=== PATIENT | male | born 1990 | race Caucasian/White ===

== ENCOUNTER 2021-01-01 08:50 | Outpatient (CLI) | payer BC, SELFPAY ==
[2021-01-01 09:53] LABS: SARS-CoV-2 Ag Negative (Negative)
== END 2021-01-01 08:51 | disposition home or self-care (01) ==
LOC: CHSLAB 08:55
PROVIDERS: PCP Physician Assistant; Visit Provider Physician Assistant
DX: R05 Cough (principal); Z20.822 Contact with and (suspected) exposure to COVID-19
CPT/HCPCS: 87426; C9803

== ENCOUNTER 2021-09-18 17:44 | Outpatient (CLI) | payer BC, SELFPAY ==
[2021-09-18 19:59] LABS: SARS-CoV-2 RNA PCR Negative (Negative)
== END 2021-09-18 17:45 | disposition home or self-care (01) ==
LOC: CHSLAB 17:46
PROVIDERS: PCP Physician Assistant; Visit Provider Physician Assistant
DX: B34.9 Viral infection, unspecified (principal); Z20.822 Contact with and (suspected) exposure to COVID-19
CPT/HCPCS: C9803; U0003; U0005

== ENCOUNTER 2021-10-01 20:23 | Emergency (ER) | payer BC, SELFPAY ==
--- NOTE | ~2021-10-01 | CT_ITS ---
EXAMINATION: CT brain wo con DATE: 10/02/2021 00:17 INDICATION: Headache. TECHNIQUE: Computed tomography (CT) of the head was performed without intravenous contrast. The mA wa s adjusted according to patient size. Iterative reconstruction technique was employed. The dose-lengt h product was 681.00 mGy-cm. COMPARISON: None FINDINGS: There is a small focus of low attenuation in the left parietal white matter, which may be n ormal as an isolated finding. There is no intracranial hemorrhage, acute infarction, or abnormal intr acranial mass lesion. The ventricles are normal in size. Right maxillary sinus is small and completel y opacified. There is near complete opacification of the right ethmoid and right frontal sinuses. Rig ht-sided enophthalmos is noted. This constellation of findings is consistent with silent sinus syndro me. The mastoid air cells are normal. IMPRESSION: 1. Normal aging brain. 2. Silent sinus syndrome involving right maxillary sinus. Reviewed, dictated and finalized at location B. [facility]ER
[2021-10-01 20:48] VITALS: BP 146/88; PULSE 93; RESP 18; TEMP 37.4; O2SAT 100
--- NOTE | 2021-10-01 23:37 | PC.NURSE ---
To treatment room with steady gait and normal posture; speech clear.
--- NOTE | 2021-10-01 23:51 | ED.GENADULT ---
HPI - General Adult General Chief complaint: Headache Stated complaint: migraine Time Seen by Provider: 10/01/21 23:38 History of Present Illness HPI narrative: Patient is a 31-year-old gentleman who presents the emergency department chief complaint of migraine headache. Patient reports he has prior history of migraines reports it is frontal mostly photophobia patient reports his symptoms are not improved by anything. Patient reports he took a Imitrex without relief. Related Data Allergies Allergy/AdvReac Type Severity Reaction Status Date / Time No Known Allergies Allergy Verified 10/02/21 00:35 Review of Systems Review of Systems: A 10 system review of systems was completed on the patient and is negative except for what is stated in the HPI. Nursing and ancillary documentation was reviewed. PMFSH Comments Past medical history for migraines Exam Narrative: GENERAL: Well-appearing, well-nourished, and in no acute distress. HEAD: Normocephalic, atraumatic. EYES: PERRLA and EOMI. ENT: Nares clear, no rhinorrhea or epistaxis. Mucous membranes moist. NECK: Supple. CHEST: Clear to auscultation. No respiratory distress. HEART: Regular rate and rhythm. No murmur heard. Normal peripheral pulses. ABDOMEN: Soft, nontender, nondistended, normal active bowel sounds. EXTREMITIES: Normal range of motion. No edema. SKIN: Warm, dry, no rash. NEURO: No focal deficits. Alert and oriented x3. PSYCH: Normal mood and affect. Course Course Emergency Course: CT head shows no evidence of acute abnormality Vital Signs Vital signs: Vital Signs Temperature 37.4 C 10/01/21 20:48 Pulse Rate 93 10/01/21 20:48 Respiratory Rate 18 10/01/21 20:48 Blood Pressure 146/88 H 10/01/21 20:48 Pulse Oximetry 100 10/01/21 20:48 Temperature 37.4 C 10/01/21 20:48 Pulse Rate 93 10/01/21 20:48 Respiratory Rate 18 10/01/21 20:48 Blood Pressure 146/88 H 10/01/21 20:48 Pulse Oximetry 100 10/01/21 20:48 Medical Decision Making Vital Signs Vital Signs: Vital Signs Temperature 37.4 C 10/01/21 20:48 Pulse Rate 93 10/01/21 20:48 Respiratory Rate 18 10/01/21 20:48 Blood Pressure 146/88 H 10/01/21 20:48 Pulse Oximetry 100 10/01/21 20:48 Temperature 37.4 C 10/01/21 20:48 Pulse Rate 93 10/01/21 20:48 Respiratory Rate 18 10/01/21 20:48 Blood Pressure 146/88 H 10/01/21 20:48 Pulse Oximetry 100 10/01/21 20:48 Discharge Plan Discharge Clinical Impression: Headache, migraine Qualifiers: Migraine type: unspecified Status migrainosus presence: without status migrainosus Intractability: not intractable Qualified Code(s): G43.909 - Migraine, unspecified, not intractable, without status migrainosus Patient Disposition: Home, Self-Care Condition: Stable Instructions: Antibiotic Form, Migraine Headache (ED) Follow-up/Referrals: Johnnie,JIM Bailey [Primary Care Provider] - Time of Disposition: 01:53
[2021-10-02] MEDS: diphenhydrAMINE HCl INJ 50 MG/ML VIAL IV PUSH (00:36)
[2021-10-02] MEDS: PROCHLORPERAZINE EDISYLATE 10 MG/2 ML VIAL IV PUSH (00:36)
[2021-10-02] MEDS: SODIUM CHLORIDE 0.9% IV 1,000 ML 999 ML IV CONT (00:36)
[2021-10-02] MEDS: KETOROLAC 30 MG/ML VIAL (*BKC) IV PUSH (00:36)
[2021-10-02] MEDS: SODIUM CHLORIDE 0.9% IV 100 ML 500 ML (00:37)
[2021-10-02 02:23] VITALS: BP 108/73; PULSE 68; RESP 16; O2SAT 98
== END 2021-10-02 02:25 | disposition home or self-care (01) ==
PROVIDERS: Emergency Provider Emergency Medicine; PCP Physician Assistant
DX: G43.909 Migraine, unspecified, not intractable, without status migrainosus (principal)
CPT/HCPCS: 70450; 96361; 96374; 96375; 99284; J0780; J1200; J1885; J7030

== ENCOUNTER 2021-10-07 14:41 | Outpatient (CLI) | payer BC, SELFPAY ==
[2021-10-08 21:11] LABS: SARS-CoV-2 RNA PCR Negative
== END 2021-10-07 14:42 | disposition home or self-care (01) ==
LOC: CHSLAB 14:45
PROVIDERS: PCP Physician Assistant; Visit Provider Physician Assistant
DX: B34.9 Viral infection, unspecified (principal); Z20.822 Contact with and (suspected) exposure to COVID-19
CPT/HCPCS: C9803; U0003; U0005

== ENCOUNTER 2022-09-06 14:04 | Emergency (ER) | payer BC, SELFPAY ==
[2022-09-06 14:10] VITALS: BP 139/74; PULSE 85; RESP 16; TEMP 37.1; O2SAT 98
--- NOTE | 2022-09-06 14:50 | ED.GENADULT ---
HPI - General Adult General Chief complaint: Upper Respiratory Infection Stated complaint: sore throat,cough,ear ache Source: patient Mode of arrival: ambulatory Limitations: no limitations History of Present Illness HPI narrative: Patient presents for evaluation of left-sided ear pain. Symptom onset this morning upon waking today. He had some right-sided ear pain yesterday. That persists but it is mild in severity compared to the left side. He rates his left ear pain as 8/10 in severity. No drainage from the ears. He has a sore throat and occasional cough. His had similar symptoms last week. No fever, chills, nausea, vomiting, diarrhea or SOB. He does not smoke. No additional complaints or concerns. Related Data Home Medications Medication Instructions Recorded Confirmed loratadine 10 mg tablet (Claritin) 10 mg PO DAILY 09/06/22 09/06/22 omeprazole 20 mg capsule,delayed 20 mg PO DAILY 09/06/22 09/06/22 release Allergies Allergy/AdvReac Type Severity Reaction Status Date / Time No Known Allergies Allergy Verified 09/06/22 14:32 Review of Systems Review of Systems: CONSTITUTIONAL: Denies fever, chills, or sweats. EYES: Denies visual changes, redness, or discharge. ENT: Reports bilateral ear pain, left greater than the right. Reports sore throat. CARDIOVASCULAR: Denies chest pain, palpitations, or edema. RESPIRATORY: Reports cough. Denies dyspnea. GASTROINTESTINAL: Denies abdominal pain, nausea, vomiting, or diarrhea. GENITOURINARY: Denies dysuria or hematuria. SKIN: Denies rash or itching. MUSCULOSKELETAL: Denies back pain, joint pain, or myalgia. NEUROLOGIC: Denies headache, numbness, dizziness, or weakness. PSYCHIATRIC: Denies anxiety or depression. [facility] Past Medical History Medical History No pertinent past medical history Surgical History Surgical History No pertinent past surgical history Family History Family History Mother Family history non-contributory Social History Social History Smoking status: Never smoker Alcohol intake: never Substance use: never Gender identity (if verbalized by the patient): Male Sexual Orientation (if Verbalized by the Patient): Straight or Heterosexual Spiritual care concerns: No Exam Narrative: GENERAL: Well-appearing, well-nourished, and in no acute distress. HEAD: Normocephalic, atraumatic. EYES: PERRLA and EOMI. ENT: Nares clear, no rhinorrhea or epistaxis. Mucous membranes moist. Oropharynx without tonsillar hypertrophy exudate or other lesions. Bilateral tympanic membrane erythema. There is purulent material behind the left TM with bulging NECK: Supple. No adenopathy or masses. No carotid bruits or JVD CHEST: Clear to auscultation. No respiratory distress. No wheezes rales or rhonchi HEART: Regular rate and rhythm. No murmur heard. Normal peripheral pulses. ABDOMEN: Soft, nontender, nondistended, normal active bowel sounds. EXTREMITIES: Normal range of motion. No edema. SKIN: Warm, dry, no rash. NEURO: No focal deficits. Alert and oriented x3. PSYCH: Normal mood and affect. Course Course Emergency Course: This is a 32-year-old male who presents for evaluation of left-sided ear pain. He has evidence of otitis media on exam. Will treat with Augmentin. Increase hydration. OTC meds for symptom management. Follow up outpatient for further evaluation and treatment and go to the ER for worsening symptoms. Pt in agreement with plan of care. Level of Care: Express Care Visit Vital Signs Vital signs: Vital Signs Temperature 37.1 C 09/06/22 14:10 Pulse Rate 85 09/06/22 14:10 Respiratory Rate 16 09/06/22 14:10 Blood Pressure 139/74 09/06/22 14:10 Pulse Oximetry 98 09/06/22
== END 2022-09-06 14:56 | disposition home or self-care (01) ==
PROVIDERS: Emergency Provider Nurse Practitioner; PCP Physician Assistant
DX: H66.92 Otitis media, unspecified, left ear (principal)
CPT/HCPCS: 99213; G0463

== ENCOUNTER 2022-11-08 10:04 | Emergency (ER) | payer BC, SELFPAY ==
[2022-11-08 10:22] VITALS: BP 147/80; PULSE 104; RESP 16; TEMP 36.9; O2SAT 97
--- NOTE | 2022-11-08 10:44 | ED.GENADULT ---
HPI - General Adult General Chief complaint: Upper Respiratory Infection Stated complaint: sore throat,nausea,diarrhea Source: patient Mode of arrival: ambulatory Limitations: no limitations History of Present Illness HPI narrative: Patient presents for evaluation of sick symptoms. Symptoms include nausea, vomiting, sore throat, fever. His was here yesterday and tested positive for strep. His symptoms started approximately 2 days ago. Denies any cough, shortness of breath. He does not smoke. His son is being evaluated here for similar symptoms. He took tylenol for his symptoms. No additional complaints or concerns. Related Data Home Medications Medication Instructions Recorded Confirmed loratadine 10 mg tablet (Claritin) 10 mg PO DAILY 09/06/22 11/08/22 omeprazole 20 mg capsule,delayed 20 mg PO DAILY 09/06/22 11/08/22 release Allergies Allergy/AdvReac Type Severity Reaction Status Date / Time No Known Allergies Allergy Verified 11/08/22 10:34 Review of Systems Review of Systems: CONSTITUTIONAL: Reports fever. Denies chills. EYES: Denies visual changes, redness, or discharge. ENT: Reports sore throat. Denies otalgia. CARDIOVASCULAR: Denies chest pain, palpitations, or edema. RESPIRATORY: Denies cough or dyspnea. GASTROINTESTINAL: Reports nausea vomiting. Denies diarrhea. GENITOURINARY: Denies dysuria or hematuria. SKIN: Denies rash or itching. MUSCULOSKELETAL: Denies back pain, joint pain, or myalgia. NEUROLOGIC: Denies headache, numbness, dizziness, or weakness. PSYCHIATRIC: Denies anxiety or depression. PMFSH Surgical History Surgical History History of cholecystectomy History of repair of ACL Family History Family History Mother Family history non-contributory Social History Social History Smoking status: Never smoker Alcohol intake: never Substance use: never Living arrangements: with family Gender identity (if verbalized by the patient): Male Sexual Orientation (if Verbalized by the Patient): Straight or Heterosexual Spiritual care concerns: No Exam Narrative: GENERAL: Well-appearing, well-nourished, and in no acute distress. HEAD: Normocephalic, atraumatic. EYES: PERRLA and EOMI. ENT: Nares clear, no rhinorrhea or epistaxis. Mucous membranes moist. Bilateral tonsillar enlargement and erythema with white exudate. Uvula is midline.. Bilateral TMs pearly ravi nonbulging NECK: Supple. No adenopathy or masses. No carotid bruits or JVD CHEST: Clear to auscultation. No respiratory distress. No wheezes rales or rhonchi HEART: Regular rate and rhythm. No murmur heard. Normal peripheral pulses. ABDOMEN: Soft, nontender, nondistended, normal active bowel sounds. EXTREMITIES: Normal range of motion. No edema. SKIN: Warm, dry, no rash. NEURO: No focal deficits. Alert and oriented x3. PSYCH: Normal mood and affect. Course Course Emergency Course: This is a 32-year-old male who presented for evaluation of sick symptoms after recent strep exposure. Rapid strep positive. Will treat with amoxicillin. Follow up with primary provider. Go to the ER for worsening symptoms. [id number] agents for symptom management. Patient in agreement with plan of care. Level of Care: Express Care Visit Vital Signs Vital signs: Vital Signs Temperature 36.9 C 11/08/22 10:22 Pulse Rate 104 H 11/08/22 10:22 Respiratory Rate 16 11/08/22 10:22 Blood Pressure 147/80 H 11/08/22 10:22 Pulse Oximetry 97 11/08/22 10:22 Oxygen Delivery Room Air 11/08/22 10:22 Temperature 36.9 C 11/08/22 10:22 Pulse Rate 104 H 11/08/22 10:22 Respiratory Rate 16 11/08/22 10:22 Blood Pressure 147/80 H 11/08/22 10:22 Pulse Oximetry 97 11/08/22 10:22 Oxygen Delivery Room Air 11/08/22 10:22
== END 2022-11-08 10:45 | disposition home or self-care (01) ==
PROVIDERS: Emergency Provider Nurse Practitioner; PCP Physician Assistant
DX: J02.0 Streptococcal pharyngitis (principal)
CPT/HCPCS: 87880; 99213; G0463

== ENCOUNTER 2022-11-16 11:07 | Emergency (ER) | payer BC, SELFPAY ==
--- NOTE | 2022-11-16 11:10 | ED.EYEPROB ---
HPI - Eye Problem General Chief complaint: Upper Respiratory Infection Stated complaint: emely eye redness Time Seen by Provider: 11/16/22 11:10 Source: patient and RN notes reviewed History of Present Illness HPI Narrative: Patient is a 32-year-old male who presents to urgent care with complaints of bilateral eye redness. Patient was here on the 08 of November and diagnosed with strep. Patient was placed on amoxicillin and Claritin at that time. Patient states he has been taking medication but still is having fevers. States bilateral eye redness started on and he has been using an old eyedrops prescription of his sons at home. Patient also took ibuprofen for the fever. No other acute complaints. No acute distress noted. Patient aware of the plan of care. Some parts of this dictation were generated by voice recognition software and may contain typographical and/or grammatical inaccuracies. Related Data Home Medications Medication Instructions Recorded Confirmed loratadine 10 mg tablet (Claritin) 10 mg PO DAILY 09/06/22 11/08/22 omeprazole 20 mg capsule,delayed 20 mg PO DAILY 09/06/22 11/08/22 release Allergies Allergy/AdvReac Type Severity Reaction Status Date / Time No Known Allergies Allergy Verified 11/08/22 10:34 Review of Systems Review of Systems: CONSTITUTIONAL: Reports fever EYES: Reports bilateral eye redness, itchiness and drainage ENT: Denies rhinorrhea, congestion, otalgia, sore throat CARDIOVASCULAR: Denies chest pain, palpitations, or edema. RESPIRATORY: Denies cough or dyspnea. GASTROINTESTINAL: Denies abdominal pain, nausea, vomiting, or diarrhea. GENITOURINARY: Denies dysuria or hematuria. SKIN: Denies rash or itching. MUSCULOSKELETAL: Denies back pain, joint pain, or myalgia. NEUROLOGIC: Denies headache, numbness, or weakness. All other systems reviewed are negative, except as documented in HPI. [facility] Surgical History Surgical History History of cholecystectomy History of repair of ACL Family History Family History Mother Family history non-contributory Social History Social History Smoking status: Never smoker Alcohol intake: never Substance use: never Living arrangements: with family Gender identity (if verbalized by the patient): Male Sexual Orientation (if Verbalized by the Patient): Straight or Heterosexual Spiritual care concerns: No Comments At the time of my signature, I reviewed and agree with the nursing past medical, surgical, social, and family history. There is no relevant family history pertinent to the patient complaint. Exam Narrative: GENERAL: This is a well-nourished, well-developed patient, in no apparent distress. HEAD: normocephalic, atraumatic. EYES: PERRL. Mild bilateral injected conjunctiva with erythemics bilateral sclera and clear drainage. Vision is grossly intact. EARS: External ears normal, auditory canals clear and without drainage, TMs normal without perforation. Hearing grossly intact. NOSE: External nose normal with no obvious nasal discharge, nares without redness, no rhinorrhea. THROAT: Mucous membranes moist, mild erythema to posterior pharynx with mild postnasal drainage NECK: Neck supple, non-tender without lymphadenopathy SKIN: warm, intact with no suspicious lesions or rash, good texture and turgor. NEURO: awake, alert, and oriented to person, place and time. There were no obvious focal neurologic abnormalities. EXTREMITIES: No clubbing, cyanosis, or edema. Course Course Level of Care: Express Care Visit Vital Signs Vital signs: Vital Signs Temperature 98.9 F 11/16/22 11:14 Pulse Rate 102 H 11/16/22 11:14 Respiratory Rate 14 11/16/22 11:14 Blood Pressure 140/90 11/16/22 11:14 Pulse Oximetry 98 11/16/22 11:14 Ox
[2022-11-16 11:14] VITALS: BP 140/90; PULSE 102; RESP 14; TEMP 37.2; O2SAT 98
== END 2022-11-16 11:42 | disposition home or self-care (01) ==
PROVIDERS: Emergency Provider Nurse Practitioner Family; PCP Physician Assistant
DX: H10.33 Unspecified acute conjunctivitis, bilateral (principal)
CPT/HCPCS: 87081; 87880; 99213; G0463

== ENCOUNTER 2023-11-25 16:32 | Emergency (ER) | payer BC, SELFPAY ==
[2023-11-25 16:38] VITALS: BP 150/73; PULSE 71; RESP 16; TEMP 37.1; O2SAT 99
--- NOTE | 2023-11-25 16:56 | ED.GENADULT ---
HPI - General Adult General Chief complaint: Upper Respiratory Infection Stated complaint: Cough/Congestion Source: patient, RN notes reviewed and old records reviewed Mode of arrival: ambulatory Limitations: no limitations History of Present Illness HPI narrative: 33-year-old male patient presents to Express Care with complaint, congestion, headache, right ear pain that started 3 days ago. Patient states cough is productive states phlegm production is yellowish. Patient taking [id number] cough sores with no relief. Patient denies chest pain, shortness of breath, dizziness, weakness, fever Related Data Home Medications Medication Instructions Recorded Confirmed Claritin 11/25/23 omeprazole 11/25/23 Allergies Allergy/AdvReac Type Severity Reaction Status Date / Time No Known Allergies Allergy Verified 11/25/23 16:34 Review of Systems Constitutional: Constitutional: Reports no additional constitutional complaints, Denies body ache(s), Denies chills, Denies fatigue, Denies fever(s) and Reports headache(s) Eyes: Eyes: Reports no additional eye complaints and Denies blurry vision ENT: Reports system reviewed and no additional complaints, except as documented, Denies vertigo, Denies dizziness, Denies ear discharge, Reports otalgia, Denies facial pain, Denies headache(s), Reports nasal congestion, Reports nasal discharge, Denies sinus pain, Reports sinus pressure and Denies sore throat Cardiovascular: Cardiovascular: Reports no additional cardiovascular complaints, Denies chest pain, Denies chest pain at rest, Denies rapid heart rate and Denies dyspnea Respiratory: Respiratory: Reports no additional respiratory complaints, Reports chest congestion, Reports cough, Denies pain on inspiration, Denies pain with cough and Denies dyspnea Gastrointestinal: Gastrointestinal: Denies abdominal pain, Denies diarrhea, Denies nausea and Denies vomiting Integumentary/Breasts: Skin/Breast: Denies rash Neurologic: Reports system reviewed and no additional complaints, except as documented, Denies vertigo, Denies dizziness and Denies headache(s) Endocrine: Endocrine: Denies fatigue [facility] Surgical History Surgical History History of cholecystectomy History of repair of ACL Family History Family History Mother Family history non-contributory Social History Social History Smoking status: Never smoker Alcohol intake: never Substance use: never Living arrangements: with family Gender identity (if verbalized by the patient): Male Sexual Orientation (if Verbalized by the Patient): Straight or Heterosexual Spiritual care concerns: No Comments At the time of my signature, I reviewed and agree with the nursing past medical, surgical, social, and family history. There is no relevant family history pertinent to the patient complaint. Exam Const: General: cooperative, healthy appearing, no acute distress and well nourished Nutritional Appearance: well nourished Orientation/consciousness: patient oriented x3 Limitations: no limitations HENMT: Head: normal to inspection and normocephalic Ears: external ears normal, EAC's normal, mastoids normal and TM abnormal wth effusion serous bilateral Face/Nose/Sinus: Normal nasal mucous membranes and turbinates present and normal facial exam Face and sinus: normal facial exam Mouth: Yes Normal oral and palatal mucosa present, Yes oropharynx normal and Yes moist mucous membranes Throat: tonsils normal, uvula midline, normal tonsils, no peritonsillar masses, posterior oropharynx abnormal erythema, postnasal drainage and no uvular edema Eyes: General: appearance normal, both eyes and all related structures Sclera: sclerae normal Pupils: Equal, round and reactive pupils present Resp: Effort & Inspection: nor
== END 2023-11-25 17:21 | disposition home or self-care (01) ==
PROVIDERS: Emergency Provider Registered Nurse; PCP Physician Assistant
DX: B34.9 Viral infection, unspecified (principal); Z20.822 Contact with and (suspected) exposure to COVID-19
CPT/HCPCS: 87426; 87804; 99213; G0463

== ENCOUNTER 2024-06-30 17:25 | Emergency (ER) | payer BC, SELFPAY ==
[2024-06-30 17:37] VITALS: BP 144/78; PULSE 71; RESP 18; TEMP 37.2; O2SAT 98
--- NOTE | 2024-06-30 17:44 | ED.EXTPRO ---
HPI - Extremity Problem General Chief complaint: Extremity Problem,Nontraumatic Stated complaint: Left Elbow Swelling/Irritation Time Seen by Provider: 06/30/24 17:40 Source: patient and RN notes reviewed Mode of arrival: ambulatory Limitations: no limitations History of Present Illness HPI Narrative: 33-year-old male presents with concern for left elbow redness, pain, warmth that started today. He denies any injury or trauma. 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 MD Complaint: extremity swelling Related Data Home Medications Medication Instructions Recorded Confirmed loratadine 10 mg tablet (Claritin) 10 mg PO DAILY 06/30/24 06/30/24 omeprazole 20 mg capsule,delayed 20 mg PO DAILY 06/30/24 06/30/24 release Allergies Allergy/AdvReac Type Severity Reaction Status Date / Time No Known Allergies Allergy Verified 06/30/24 17:41 Review of Systems Review of Systems: CONSTITUTIONAL: Denies malaise, chills, sweats, or fever. CARDIOVASCULAR: Denies chest pain, palpitations, or edema. RESPIRATORY: Denies cough or dyspnea. SKIN: Denies rash or itching, bruising MUSCULOSKELETAL: Reports left elbow redness, tenderness, swelling NEUROLOGIC: Denies numbness, weakness All systems reviewed & are unremarkable except as noted in HPI and below PMFSH Surgical History Surgical History History of cholecystectomy History of repair of ACL Family History Family History Mother Family history non-contributory Social History Social History Smoking status: Never smoker Alcohol intake: never Substance use: never Living arrangements: with family Gender identity (if verbalized by the patient): Male Sexual Orientation (if Verbalized by the Patient): Straight or Heterosexual Spiritual care concerns: No Comments At time of signature, agree with nursing past medical, surgical, social and family history. There is no relevant family history pertinent to the presenting complaint Exam Narrative: GENERAL: Well-appearing, well-nourished, and in no acute distress. HEAD: Normocephalic, atraumatic. EYES: PERRLA, conjunctivae clear NECK: Supple. CHEST: Speaks in full sentences. No respiratory distress. HEART: Regular rate and rhythm. Normal and equal peripheral pulses. EXTREMITIES: Left elbow has grossly normal strength and sensation, grossly normal range of motion. Lateral Elbow edema, mild erythema and warmth. Normal sensation with sensitivity to light touch and pain. Elbow tenderness. No open wounds, no skin tenting, no devitalized tissue or atrophy, no trophic changes, no obvious deformity, alignment normal, nearby joints and structures intact. Distal pulses palpable and equal bilaterally, skin warm, dry, pink. Capillary refill less than 3 seconds. SKIN: Warm, dry, no rash. NEURO: Alert and oriented x3. PSYCH: Normal mood and affect Course Course Emergency Course: Patient is aware of diagnosis, understands and agrees to treatment plan. Anticipatory guidance given. Patient agrees to follow-up as directed and is aware of reasons to seek care at the emergency department. Portions of this record may have been created with voice recognition software Level of Care: Express Care Visit Vital Signs Vital signs: Reviewed. MDM - Extremity (Nontraumatic) MDM Narrative Medical decision making narrative: I evaluated this patient in the express care. History is obtained from patient who is an independent historian and physical exam was performed.? Available medical records were reviewed. ? Exam findings show no acute concerns or changes; patient is non-toxic appearing and is in no distress. ? Differential diagnosis and treatment plan were discussed with the patient. Patient agrees with discussion and aft
== END 2024-06-30 17:51 | disposition home or self-care (01) ==
PROVIDERS: Emergency Provider Nurse Practitioner; PCP Physician Assistant
DX: M70.32 Other bursitis of elbow, left elbow (principal)
CPT/HCPCS: 99213; G0463

== ENCOUNTER 2024-07-18 15:29 | Emergency (ER) | payer BC, SELFPAY ==
[2024-07-18 15:36] VITALS: BP 148/86; PULSE 74; RESP 20; TEMP 37.1; O2SAT 100
--- NOTE | 2024-07-18 16:06 | ED_ITS ---
HPI - URI/Sore Throat General Chief Complaint: Upper Respiratory Infection Stated Complaint: Cough, shortness of breath Time Seen by Provider: 07/18/24 16:06 Source: patient, RN notes reviewed and old records reviewed Mode of arrival: ambulatory Limitations: no limitations History of Present Illness HPI Narrative: 34-year-old male to Express Care with complaint of productive cough with green sputum, shortness of breath with exertion, sore throat, headache, fever, right ear pain for 6 days. Patient was seen on June 30 for bursitis and given 10 days of amoxicillin as well as prednisone. patient denies breathing, difficulty swallowing, chest pain, allergies, pertinent medical history. Patient able to tolerate fluids by mouth. Patient resting comfortably in exam room in no acute distress. Respirations even and nonlabored. Patient able to speak in complete sentences without difficulty. Related Data Home Medications Medication Instructions Recorded Confirmed loratadine 10 mg tablet (Claritin) 10 mg PO DAILY 06/30/24 07/18/24 omeprazole 20 mg capsule,delayed 20 mg PO DAILY 06/30/24 07/18/24 release Allergies Allergy/AdvReac Type Severity Reaction Status Date / Time No Known Allergies Allergy Verified 07/18/24 15:57 Review of Systems Review of Systems: All systems reviewed & are unremarkable except as noted in HPI and below Constitutional: Constitutional: Reports as per HPI, Reports fever(s) and Reports headache(s) Eyes: Eyes: Reports no additional eye complaints ENT: Reports as per HPI and Reports otalgia ( Right) Cardiovascular: Cardiovascular: Reports no additional cardiovascular complaints, Denies chest pain and Denies dyspnea Respiratory: Respiratory: Reports no additional respiratory complaints, Reports change in phlegm color ( green), Reports cough, Denies dyspnea and Reports dyspnea on exertion Musculoskeletal: Musculoskeletal: Reports no additional musculoskeletal complaints Neurologic: Reports system reviewed and no additional complaints, except as documented Psychiatric: Psychiatric: Reports no additional psychiatric complaints [facility] Surgical History Surgical History History of cholecystectomy History of repair of ACL Family History Family History Mother Family history non-contributory Social History Social History Smoking status: Never smoker Alcohol intake: never Substance use: never Living arrangements: with family Gender identity (if verbalized by the patient): Male Sexual Orientation (if Verbalized by the Patient): Straight or Heterosexual Spiritual care concerns: No Comments At the time of my signature, I reviewed and agree with the nursing past medical, surgical, social, and family history. There is no relevant family history pertinent to the patient complaint. Exam Const: General: cooperative, healthy appearing, comfortable, no acute distress, alert and well nourished Nutritional Appearance: well nourished Orientation/consciousness: patient oriented x3 Limitations: no limitations HENMT: Head: normal to inspection Ears: external ears normal Face/Nose/Sinus: Normal external nose present, Normal nares present, normal facial exam, No erythema and No edema Face and sinus: normal facial exam, no erythema and no edema Mouth: Yes Normal oral and palatal mucosa present Eyes: General: appearance normal, both eyes and all related structures Neck: Neck: normal visual inspection, full ROM and no meningeal signs Lymphatic: no lymphadenopathy noted and no lymphedema noted Chest: Chest palpation & inspection: normal inspection of the chest Resp: Effort & Inspection: normal respiratory effort and able to speak in complete sentences Auscultation: clear to auscultation bilaterally Cardio: Jugular venous distension: no JVD Rate: regular rate Rhythm: regular rhythm Back/Spine/Pelvis: Cervical Spine: cervical ROM normal Skin: General skin exam: normal color, no rashes or lesions noted and turgor normal Neuro: General: patient oriented x3, gait normal, moves all extremities and no meningeal signs Speech: normal speech Gait exam (Neuro): Normal gait present Extrem: General: normal to inspection, full ROM and capillary refill normal Psych: Appearance: grossly normal and well kempt Course Course Emergency Course: Some parts of this dictation were generated by voice recognition software and may contain typographical and/or grammatical inaccuracies. Level of Care: Express Care Visit Vital Signs Vital signs: Vital Signs Temperature 37.1 C 07/18/24 15:36 Pulse Rate 74 07/18/24 15:36 Respiratory Rate 20 07/18/24 15:36 Blood Pressure 148/86 H 07/18/24 15:36 Pulse Oximetry 100 07/18/24 15:36 Oxygen Delivery Room Air 07/18/24 15:36 Temperature 37.1 C 07/18/24 15:36 Pulse Rate 74 07/18/24 15:36 Respiratory Rate 20 07/18/24 15:36 Blood Pressure 148/86 H 07/18/24 15:36 Pulse Oximetry 100 07/18/24 15:36 Oxygen Delivery Room Air 07/18/24 15:36 reviewed MDM - URI/Sore Throat MDM Narrative Medical decision making narrative: 34-year-old male to Express Care with complaint of productive cough with green sputum, shortness of breath with exertion, sore throat, headache, fever, right ear pain for 6 days. Patient was seen on June 30 for bursitis and given 10 days of amoxicillin as well as prednisone. patient denies breathing, difficulty swallowing, chest pain, allergies, pertinent medical history. Patient able to tolerate fluids by mouth. Patient resting comfortably in exam room in no acute distress. Respirations even and nonlabored. Patient able to speak in complete sentences without difficulty. On exam, right TM erythematous, bulging with fluid, loss of landmarks. Right EAC erythema, edema tenderness. Exam otherwise unremarkable. Findings consistent with right otitis media. Patient is sitting comfortably in exam room nontoxic in appearance. Patient appropriate for outpatient treatment and follow-up. Discharge instructions reviewed with patient, as well as provided in writing per nursing staff. The instructions also include specific and strict return/GO TO THE ER as well as f/u information. All questions have been answered, and the patient deny any further questions w ith discharge and discharge plan. Some parts of this dictation were generated by voice recognition software and may contain typographical and/or grammatical inaccuracies. Differential Diagnosis Differential diagnosis: Likely upper respiratory infection, croup, otitis media, sinusitis, viral infection, bronchitis, influenza and pharyngitis Discharge Plan Discharge Clinical Impression: Acute right otitis media Patient Disposition: Home, Self-Care Condition: Stable Instructions: Ear Infection (AC) Additional Instructions: -Alternate Tylenol and Motrin per package directions for fever or pain. -Antihistamine medication such as Benadryl at night and Zyrtec/Claritin/Catia during the day can help improve symptoms. -Use Flonase twice a day for 5 days then daily to help reduce the inflammation and dry up your sinuses. -You can also use Sudafed or Mucinex. Be sure to drink plenty of water with these medications at least 8 ounces with every dose and it is important to drink 8 to 10 glasses of water per day. Water is a natural decongestant -Eat and drink things that are easy to swallow, like tea or soup, or popsicles. -Oral rinses such as: Salt water gargles and/or may use topical anesthetic (eg. Chloraseptic spray) or lozenges to relieve dryness or throat pain). -Frequent hand washing or hand machine set up operator paper goods is one of the best ways to prevent spread of infection. -Using a vaporizer or humidifier at night will also help thin secretions and help with coughing up phlegm. -Follow up with primary care provider in 2-3 days if condition is not improving; or seek ER visit if you have trouble breathing, cannot drink enough fluids, have muffled voice, difficulty opening your mouth, or severe swelling. Prescriptions: New amoxicillin-pot clavulanate 875-125 mg tablet 1 tablet PO Q12H Qty: 20 0RF No Action omeprazole 20 mg Capsule,Delayed Release(Dr/Ec) 20 mg PO DAILY loratadine [Claritin] 10 mg Tablet 10 mg PO DAILY Follow-up/Referrals: Johnnie,JIM Bailey [Primary Care Provider] - Stand Alone Forms: Work/School Release IP
== END 2024-07-18 16:15 | disposition home or self-care (01) ==
PROVIDERS: Emergency Provider Nurse Practitioner Family; PCP Physician Assistant
DX: H66.91 Otitis media, unspecified, right ear (principal)
CPT/HCPCS: 99213; G0463

== ENCOUNTER 2025-04-02 06:46 | Emergency (ER) | payer BC, SELFPAY ==
--- NOTE | ~2025-04-02 | CT_ITS ---
Non-contrast CT scan of the Abdomen and Pelvis Clinical indication: Right flank pain, dysuria Technique: 2.5 mm axial scans were obtained through the abdomen and pelvis without intravenous or or al contrast. Dose reduction technique was used on this scan by utilizing automated exposure control a nd iterative reconstruction technique. The dose-length product (DLP) was 640.53 mGy-cm. Findings: Images through the lung bases reveal no abnormalities. There is no evidence of renal or ureteral calculi. The kidneys and the ureters are nondilated. There is diffuse hepatic steatosis. Cholecystectomy clips are present. The spleen, pancreas, and adre nals appear normal. There is no aortic aneurysm. There is no evidence of bowel obstruction. Images through the pelvis were performed. There is no evidence of ascites or lymphadenopathy. Urinary bladder unremarkable. No pelvic mass seen. Impression: No acute abnormality seen. Diffuse hepatic steatosis. Reviewed, dictated and finalized at [facility]. Impression: No acute abnormality seen. Diffuse hepatic steatosis.
[2025-04-02 06:46] VITALS: BP 131/90; PULSE 93; RESP 18; TEMP 36.4; O2SAT 98
--- OUTSIDE RECORDS SUMMARY | 2025-04-02 06:48 | XMS_ITS | Referral Summary ---
Author Organization [facility] [address] Address [address] [place] [address] Care Team Providers Care Plant And Instrument Engineer Name Role Phone Geovany Blair Primary Care Provider [phone] Allergies Active Allergy Reactions Criticality Noted Date Comments Adhesive Other (See comments) Low 12/03/2021 Skin irritation Medications omeprazole 20 mg tablet,delayed release (DR/EC) Take by mouth daily Active loratadine (CLARITIN) 10 mg tablet Take 10 mg by mouth daily. Active ondansetron (ZOFRAN) 8 mg tablet ondansetron HCl 8 mg tablet Active SUMAtriptan (IMITREX) 50 mg tablet Take 50 mg by mouth once as needed Active methylPREDNISol one (MEDROL DOSEPACK) 4 mg Dosepack Take as directed on package 1 packet 3 Active Active Problems Problem Noted Date Diagnosed Date Acute non-recurrent streptococcal tonsillitis Assessment & Plan (11/30/2022 7:53 PM CDT): I reassured him that everything looks okay. He still has some symptoms so I recommended further treatment. I am placing him on Augmentin for 10 days and a Medrol Dosepak. I think ultimately probably does not need to have any type of surgical intervention and he understands that. He will follow-up if he has any further problems with this. 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 2 of the four lesions do bother the patient on a regular basis, and he has noticed some increase in size over the last year. The procedure of excision was described along with the post operative period and risks, which the patient agrees to. Patient's was also present during the discussion, all questions were addressed. Will schedule for excision of all 4 lesions as requested by the patient. Lipoma 08/07/2019 Overview (08/07/2019): Added automatically from request for surgery [id number] Social History Tobacco Use Types Packs/Day Years Used Date Smoking Tobacco: Never Smokeless Tobacco: Never Alcohol Use Standard Drinks/Week Comments Yes 0 (1 standard drink = 0.6 oz pur e alcohol) Rarely AUDIT-C Answer Date Recorded Q1: How often do you have a drink containing alc ohol? Monthly or less 11/17/2021 Q2: How many drinks containi ng alcohol do you have on a typical day when you are drinking? 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 Gender Identity Not on file Sexual Orientation Not on file Last Filed Vital Signs Vital Sign Reading Time Taken Comments Blood Pressure 119/80 12/03/2021 1:53 PM CDT Pulse 74 12/03/2021 1:53 PM CDT Temperature 36.4 C (97.5 F) 12/03/2021 1:53 PM CDT Respiratory Rate 18 11/30/2022 9:24 AM CDT Oxygen Saturation 95% 12/03/2021 1:53 PM CDT Inhaled Oxygen Concentration - - Weight 93 kg (205 lb) 11/30/2022 9:24 AM CDT Height 172.7 cm (5' 8) 11/30/2022 9:24 AM CDT Body Mass Index 31.17 11/30/2022 9:24 AM CDT Plan of Treatment Not on file Procedures Procedure Name Priority Date/Time Associated Diagnosis Comments HEPATITIS PANEL, ACUTE Timed 03/08/2018 10:24 AM CDT from Last 3 Months or Most Recently Relevant to Health Maintenance Results * Hepatitis panel, acute (03/08/2018 10:24 AM CDT) Hep A IgM Non-Reacti ve Non-Reacti ve [facility] Hep B core IgM Non-Reacti ve Non-Reacti ve [facility] Hep C Ab Non-Reacti ve Non-Reacti ve [facility] HepBsAg Non-Reacti ve Non-Reacti ve [facility] Blood specimen (specimen) 03/08/2018 10:24 AM CDT 03/08/2018 10:34 AM CDT Narrative [facility] - 03/08/2018 11:38 AM CDT Hamilton Westbrook MD LAB MICROBIOLOGY - GENERAL ORDERABLES Final Result [facility] [address] Department [place] [address] from Last 3 Months or Most Recently Relevant to Health Maintenance [place] [employer] [place] Advance Directives For more information, please contact: [phone] * Full Code (Latest Code Status on File) Date Activated Date Inactivated Comments 03/08/2018 10:16 AM 03/08/2018 1:00 PM Care Teams Plant And Instrument Engineer Relationship Specialty Start Date End Date Geovany Blair PA [address] [place] [address] PCP - General Family Practice 05/01/17
--- OUTSIDE RECORDS SUMMARY | 2025-04-02 06:48 | XMS_ITS | Clinical Summary ---
Author Organization [email or web address] Address [address] [place] [address] Care Team Providers Care Data Warehouse Architect Name Role Phone Geovany Blair Primary Care Provider [phone] Ellis Varela MD Unavailable [phone] Source Comments [email or web address],non-owned Affiliates and Associated Physician Practices is amultiple site organization consisting of ambulatory clinics and hospital sitesin [place], [place], [place] and [place]. This disclosure is being madepursuant to the Care Everywhere program and may not contain all information available regarding this patient. Last updated 18.[email or web address] Allergies No known active allergies Medications * Be aware that medications may not be up to date on this document. Alwaysverify current medications with the patient. loratadine (CLARITIN) 10 MG tablet Take 10 mg by mouth once daily Active omeprazole (PRILOSEC) 20 MG capsule Take 1 capsule by mouth every 24 hours Active Social History Tobacco Use Types Packs/Day Years Used Date Smoking Tobacco: Never Smokeless Tobacco: Never Alcohol Use Standard Drinks/Week Comments Not Currently 0 (1 standard drink = 0.6 oz pur e alcohol) AUDIT-C Answer Date Recorded Q1: How often do you have a drink containing alc ohol? Never 02/22/2020 Average Number of Drinks Not on file 020 Frequency of Binge Drinking Not on file 12/2019 Sex and Gender Information Value Date Recorded Sex Assigned at Not on file Legal Sex Male 4:16 PM CDT Gender Identity Not on file Sexual Orientation Not on file Last Filed Vital Signs Vital Sign Reading Time Taken Comments Blood Pressure 160/88 02/22/2020 9:43 AM CDT Pulse 86 02/22/2020 6:46 AM CDT Temperature 36.2 C (97.1 F) 02/22/2020 9:43 AM CDT Respiratory Rate 24 02/22/2020 6:46 AM CDT Oxygen Saturation 97% 02/22/2020 6:46 AM CDT Inhaled Oxygen Concentration - - Weight 89.5 kg (197 lb 6.4 oz) 02/22/2020 5:53 A M CDT Height 172.7 cm (5' 8) 02/22/2020 5:53 AM CDT Body Mass Index 30.01 02/22/2020 5:53 AM CDT Plan of Treatment Health Maintenance Due Date Last Done Comments HIV SCREENING 2006 HEPATITIS C SCREENING 07/11/2009 DTAP/TDAP/TD VACCINES (1 - Tdap) 2010 HEPATITIS B VACCINE (1 of 3 - 19+ 3-dose series) 2010 HPV VACCINE (1 - 3-dose SCDM series) 2018 COVID-19 VACCINE ( - 2023-2 5 season) 2024 DEPRESSION SCREENING 09/20/2024 INFLUENZA VACCINE (#1) 2025 ZOSTER VACCINE (1 of 2) 2041 HIB VACCINE Aged Out No longer eligi ble based on patient's age to complete this topic MENINGOCOCCAL (Group B) VACC INE SHARED DECISION-MAKING Aged Out No longer eligibl e based on patient's age to complete this topic MENINGOCOCCAL GROUPS A/C/Y/W VACCINE Aged Out No longer eligible b ased on patient's age to complete this topic PNEUMOCOCCAL VACCINE Aged Out No long er eligible based on patient's age to complete this topic Medical Devices Implanted Type Area State Pilot Device Identifier Shelf Expiration Date Model / Serial / Lot Btn Fx 11mm Tghtrp Rnd Cncv Atch Implanted:Qty: 1 on 02/22/2020 by Ellis Varela MD at [facility] Left: Knee [employer] 10/20/2024 AR-1588TB-3 / / [id number] Sys Fx Acl Implanted:Qty: 1 on 02/22/2020 by Ellis Varela MD at [facility] Left: Knee [employer] 10/20/2021 AR-[id number] / / [id number] Pack Srg Graftlink Atgrft Implanted:Qty: 1 on 02/22/2020 by Ellis Varela MD at [facility] Left: Knee [employer] 10/20/2024 AR-[id number] P / / [id number] Dev Fx Tghtrp Fibertag Acl Rt Disp Implanted:Qty: 1 on 02/22/2020 by Ellis Varela MD at [facility] Left: Knee [employer] 08/19/2024 AR-[id number] / / [id number] Dev Fx Tghtrp Fibertag Acl Abs Disp Implanted:Qty: 1 on 02/22/2020 by Ellis Varela MD at [facility] Left: Knee [employer] 06/19/2024 AR-[id number] / / [id number] Insurance [facility] Care Teams Data Warehouse Architect Relationship Specialty Start Date End Date Geovany Blair PA [address] [place] [id number] PCP - General Physician Awning Craftsperson 01/29/20 [place] [id number] [address] Orthopedic Surgery 07/31/20
--- OUTSIDE RECORDS SUMMARY | 2025-04-02 06:48 | XMS_ITS | Data Portability ---
Author Organization [facility] Address [address] [place] [address] Care Team Providers Care Networking Technician Name Role Phone JEFF BLAIR Primary Care Provider Assessment No assessment recorded. Plan of Treatment Reminders Order Date Submit Date Provider Last Modified By Organization Details Last Modified Time Details Appointments None record ed. Lab influe nza virus A + B + SARS-C oV-2 (COVID 19) Ag panel, rapid IA, upper respir atory specim en 2023 024 STEFANIE In-Office Order, Internal Use Only DO Not Attach Compendium DO Not Attach Compendium, Do Not Delete/merge, 4 18:26:04 influe nza virus A + B + SARS-C oV-2 (COVID 19) Ag panel, rapid IA, upper respir atory specim en 2022 023 STEFANIE In-Office Order, Internal Use Only DO Not Attach Compendium DO Not Attach Compendium, Do Not Delete/merge, 3 17:07:54 Referral gastro entero logist referr al 2023 024 STEFANIE Westbrook MD, [address] [facility], [place], [address], 4 09:19:35 Procedures None record ed. Surgeries None record ed. Imaging exerci se stress test 2023 024 [facility], [address] [facility] , [place], [address], 4 12:30:15 Medication Orders sumatr iptan 50 mg tablet 2022 023 [id number], [address] [place], [address], 3 17:09:19 ondans etron HCl 8 mg tablet 2022 023 [id number], [address] [place], [address], 3 17:09:19 naprox en 500 mg tablet 2021 022 [id number], [address] [place], [address], 3 16:42:43 sumatr iptan 50 mg tablet 2021 022 [id number], [address] [place], [address], 2 14:22:55 ondans etron HCl 8 mg tablet 2021 022 [id number], [address] [place], [address], 2 14:22:55 Patient TargetsNo targets recorded. 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 for Family history of cancer of the esophagus Referring Physician: Jeff Blair, Family Medicine, Encounter Date: 06/13/2024 Results Created Date Observation Date Name Description Value Unit Range Abnormal Flag Note LastModifiedBy Organization Detail LastModifiedTime 06/09/2006/09/2023 influ imer virus A + B + SARS- CoV-2 (COVI D19) Ag panel , rapid IA, upper respi rator y speci men Flu A negati ve Not Available In-Office Order Internal Use Only DO Not Attach Compendium DO Not Attach Compendium, Do Not Delete/merge, [id number] 06/09/2023 16:22:16 06/09/2006/09/2023 influ imer virus A + B + SARS- CoV-2 (COVI D19) Ag panel , rapid IA, upper respi rator y speci men Flu B negati ve Not Available In-Office Order Internal Use Only DO Not Attach Compendium DO Not Attach Compendium, Do Not Delete/merge, [facility] 06/09/2023 16:22:16 06/09/2006/09/2023 influ imer virus A + B + SARS- CoV-2 (COVI D19) Ag panel , rapid IA, upper respi rator y speci men Rapid SARS CoV 2 Ag, QL IA, respiratory specimen negati ve Not Available In-Office Order Internal Use Only DO Not Attach Compendium DO Not Attach Compendium, Do Not Delete/merge, [facility] 06/09/2023 16:22:16 06/13/20 24 06/13/2024 influ imer virus A + B + SARS- CoV-2 (COVI D19) Ag panel , rapid IA, upper respi rator y speci men Flu A negati ve Not Available In-Office Order Internal Use Only DO Not Attach Compendium DO Not Attach Compendium, Do Not Delete/merge, [id number] 06/13/2024 18:07:49 06/13/2006/13/2024 influ imer virus A + B + SARS- CoV-2 (COVI D19) Ag panel , rapid IA, upper respi rator y speci men Flu B negati ve Not Available In-Office Order Internal Use Only DO Not Attach Compendium DO Not Attach Compendium, Do Not Delete/merge, [id number] 06/13/2024 18:07:49 06/13/20 24 06/13/2024 influ imer virus A + B + SARS- CoV-2 (COVI D19) Ag panel , rapid IA, upper respi rator y speci men Rapid SARS CoV 2 Ag, QL IA, respiratory specimen negati ve Not Available In-Office Order Internal Use Only DO Not Attach Compendium DO Not Attach Compendium, Do Not Delete/merge, [id number] 06/13/2024 18:07:49 10/02/19 22 10/02/2021 CT, head, w/o contr ast No observ ation record ed. [facility] [address], [place], [address], 10/02/2021 15:04:10 08/04/20 24 08/04/2024 exerc ise stres s test No observ ation record ed. [facility] [address] [facility], [place], [address], 08/04/2024 14:33:55 Result Notes None recorded. Problems No Known Problems Procedures Surgical History Date Name Laterality Status Provider Name and Address Organization Details Recorded Time 04/13/20 18 Cholecystectomy completed Sherly Davis [place] [facility] 12/31/2020 18:16:04 Knee arthroscopy/surgery completed Philomena Zayas [place] [facility] 10/28/2022 16:43:28 Imaging Results None recorded. Procedure Notes None recorded. Medical Equipment None Reported. Allergies No known drug allergies Medications Name Sig Start Date Stop Date Status Note LastModified by Organization Details LastModified Time amoxicillin 500 mg capsule TAKE 1 CAPSULE BY MOUTH 3 TIMES A DAY 11/20 completed Not Available Not Available Not Available ofloxacin 0.3 % eye drops INSTILL 1 DRP INTO EACH EYE FOUR TIMES DAILY 06/13 completed Not Available Not Available Not Available hydrocodone 5 mg-acetamin ophen 325 mg tablet 07/26 completed Not Available Not Available Not Available ondansetron HCl 8 mg tablet TAKE 1 TABLET BY MOUTH TWICE A DAY NEEDED FOR 15 DAYS active Not Available Not Available No t Available prednisone 20 mg tablet Take 3 tablets every day by oral route for 5 days. 12/13 completed Not Available Not Available Not Available sumatriptan 50 mg tablet TAKE 1 TABLET TWICE A DAY BY ORAL ROUTE DIRECTED FOR 15 DAYS. active Not Available Not Available No t Available hydrocodone 10 mg-acetamin ophen 325 mg tablet TAKE 1 TABLET BY MOUTH EVERY 4 HOURS NEEDED FOR PAIN 12/31 completed Not Available Not Available Not Available Tessalon Perles 100 mg capsule Take 1 capsule 3 times a day by oral route for 10 days. 10/28 completed Not Available Not Available Not Available amoxicillin 875 mg tablet TAKE 1 TABLET BY MOUTH EVERY 12 HOURS FOR 10 DAYS 06/13 completed Not Available Not Available Not Available cephalexin 500 mg capsule TAKE 1 CAPSULE BY MOUTH THREE TIMES A DAY 12/31 completed Not Available Not Available Not Available omeprazole 20 mg capsule,del ayed release TAKE 1 CAPSULE BY MOUTH EVERY DAY active Not Available Not Available No t Available aspirin 81 mg chewable tablet TAKE 1 TABLET BY MOUTH IBD 12/31 completed Not Available Not Available Not Available methylpredn isolone 4 mg tablets in a dose pack FOLLOW PACKAGE DIRECTION S 06/13 completed Not Available Not Available Not Available ondansetron 4 mg disintegrat ing tablet DISSOLVE 1 TABLET ON TONGUE EVERY 6 HOURS NEEDED FOR NAUSEA/VO MITING 12/31 completed Not Available Not Available Not Available colestipol 1 gram tablet 07/26 completed Not Available Not Available Not Available loratadine 10 mg tablet 10 mg by oral route. active Not Available Not Available No t Available naproxen 500 mg tablet Take 1 tablet twice a day by oral route for 30 days. 10/28 completed Not Available Not Available Not Available amoxicillin 875 mg-potassiu m clavulanate 125 mg tablet TAKE 1 TABLET BY MOUTH TWICE DAILY FOR 14 DAYS 06/13 completed Not Available Not Available Not Available omeprazole magnesium 20 mg tablet,susan yed release 12/31 completed Not Available Not Available Not Available Dexilant 60 mg capsule, delayed release TAKE 1 CAPSULE BY MOUTH EVERY DAY 07/26 completed Not Available Not Available Not Available Zenpep 25,000 unit-79,000 unit-105,00 0 unit capsule,del ayed release 07/26 completed Not Available Not Available Not Available Vitals Date Recorded Body weight Body height Body mass index (BMI) Oxygen saturation Oxygen saturation in Arterial blood by Pulse oximetry Heart rate Body temperature Systolic And Diastolic Provider Name and Address Organization Details Last Updated DateTime 3 59025.0 3 g 172.72 cm 31.3 kg/m2 98 % 98 % 97 /min 98.2 [degF] 124/82 mm[Hg] Philomena meeks MA [facility] 3 16:41:50 Date Recorded Body height Body mass index (BMI) Body weight Oxygen saturation Oxygen saturation in Arterial blood by Pulse oximetry Heart rate Systolic And Diastolic Provider Name and Address Organization Details Last Updated DateTime 3 172.72 cm 30.9 kg/m2 17832.2 5 g 98 % 98 % 75 /min 128/84 mm[Hg] Philomena meeks MA [facility] 3 17:04:09 Date Recorded Body height Body mass index (BMI) Body weight Oxygen saturation Oxygen saturation in Arterial blood by Pulse oximetry Heart rate Respiratory rate Systolic And Diastolic Provider Name and Address Organization Details Last Updated DateTime 4 172.72 cm 32.6 kg/m2 50765.4 9 g 98 % 98 % 81 /min 16 /min 134/85 mm[Hg] Poly Martinez MA [facility] 4 17:52:23 Social History Question Answer Notes LastModified by Organizat ion Details LastModified Time Tobacco Smoking Status Never Smoker Dian Us MA [facility], [facility] 11/23/2017 19:01:51 Do You Have An Advance Directive? No Information n ot available 12/31/2020 Are You Blind Or Do You Have Difficulty Seeing? No Information n ot available 12/31/2020 What Is Your Level Of Caffeine Consumption? Moderate Information not available 12/31/2020 In The 14 Days Before Symptom Onset, Have You Had Close Contact With A Laboratory-confirm ed COVID-19 While That Case Was Ill? No Information n ot available 12/31/2020 In The 14 Days Before Symptom Onset, Have You Had Close Contact With A Person Who Is Under Investigation For COVID-19 While That Person Was Ill? No Information not available 12/31/2020 Have You Been To An Area Known To Be High Risk For COVID-19? No Information not available 12/31/2020 Are You Deaf Or Do You Have Serious Difficulty Hearing? No Information not available 12/31/2020 What Type Of Diet Are You Following? REGULAR Information n ot available 12/31/2020 Are There Any Guns Present In Your Home? Yes Information not available 12/31/2020 What Was The Date Of Your Most Recent Tobacco Screening? 06/13/2024 Information not available 06/13/2024 What Is Your Relationship Status? Information not available 12/31/2020 Do You Use Your Seat Belt Or Car Seat Routinely? Yes Information not available 12/31/2020 Do You Have Smoke And Carbon Monoxide Detectors In Your Home? Yes Information not available 12/31/2020 Are You Passively Exposed To Smoke? No Information no t available 12/31/2020 Do You Use Sunscreen Routinely? Yes Information not available 12/31/2020 Has Tobacco Cessation Counseling Been Provided? No Information not available 12/31/2020 On What Date Was Tobacco Cessation Counseling Provided? 06/13/2024 Information not available 06/13/2024 Sex: Unknown Functional Status Question Answer Note LastModified by Organizat ion Details LastModified Time Do you use any illicit or recreational drugs? No Information not available 12/31/2020 Do you or have you ever used any other forms of tobacco or nicotine? No Information not available 12/31/2020 What is your level of alcohol consumption? None Information not available 12/31/2020 Are you currently employed? Yes Information not available 12/31/2020 Are you able to care for yourself? 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 None Information not available 12/31/2020 Mental Status Question Answer Note LastModified by Organization D etails LastModified Time Do you feel stressed (tense, restless, nervous, or anxious, or unable to sleep at night)? [id number] Information not available 12/31/2020 Family History Relationship Description Onset Age of this Age Resolved Age Notes LastModified by Organization Details LastModified Time Father Hypertensive disorder [email or web address] Not available 02/2018 19:01:03 Father Hypercholest erolemia [email or web address] Not available 02/2018 19:01:22 Father Myocardial infarction [email or web address] Not available 02/2018 19:01:44 Mother Hypertensive disorder [email or web address] Not available 02/2018 19:01:03 Mother Hypercholest erolemia [email or web address] Not available 02/2018 19:01:22 Mother Diabetes mellitus [email or web address] Not available 02/2018 19:02:04 Medical History Condition Response Coronary Artery Disease N Other N Atrial Fibrillation N High Blood Pressure N Thyroid Problems N Kidney or Bladder Problems N GI Problems N Depression N COPD N Blood Clots N Eating Disorder N Skin Problems N Anemia N Heart Attack (MT) N Anxiety Disorder N Diabetes N Muscle, Joint, or Bone Problems N Seizures/Epilepsy N Acid Reflux (GERD) N Cancer N Stroke N Asthma N Allergies N ADHD N Substance Abuse N High Cholesterol N Hepatitis N Liver Disease N Schizophrenia N Headaches N Heart Failure N Osteoporosis N Immunizations Vaccine Type Date Status Note Provider Nam e and Address Organization Details Recorded Time Hib, unspecified formulation 10/23/1992 NATALIE [place] [facility] 11/26/2023 09:25:11 MMR 10/23/1992 maynor Davis [place], [place] [facility] 11/26/2023 09:25:12 MMR 03/10/1996 maynor [place] [facility] 11/26/2023 09:25:12 DTP 03/05/1993 NATAL[place] [facility] 11/26/2023 09:25:12 OPV 1991 maynor [place] [facility] 11/26/2023 09:25:12 OPV 02/21/1992 maynor [place] [facility] 11/26/2023 09:25:12 OPV 03/05/1993 completed Sherly Davis [place] [facility] 11/26/2023 09:25:12 OPV 03/10/1996 completed Sherly [place] [facility] 11/26/2023 09:25:12 OPV 1991 completed Sherly Davis [place] [facility] 11/26/2023 09:25:12 DTP-Hib 1991 completed Sherly [place] [facility] 11/26/2023 09:25:12 DTP-Hib 02/21/1992 completed Sherly [place] [facility] 11/26/2023 09:25:12 DTP-Hib 1991 completed Sherly [place] [facility] 11/26/2023 09:25:12 DTaP 03/10/1996 completed Sherly [place] [facility] 11/26/2023 09:25:12 Past Encounters Encounter ID Performer Location Encounter Start Date Encounter Closed Date Diagnosis/Indication Diagnosis SNOMED-CT Code Diagnosis ICD10 Code Diagnosis Note [id number] Jeff Blair PA-C [facility] [address] [place] [address] 11/23/2017 18:46:19 11/23/2017 19:48:02 Eczema 01045891 L20.89 [id number] Bonilla Matthews MD [facility] [address] [place] [address] 12/13/2017 16:36:29 12/14/2017 10:50:56 Ingrowing toenail 703947437 L60.0 [id number] Bonilla Matthews MD [facility] [address] [place] [address] 02/09/2018 16:29:45 02/10/2018 13:26:38 Gastroesophageal reflux disease without esophagitis 430610553 K21.9 [id number] Bonilla Matthews MD [facility] [address] [place] [address] 02/16/2018 16:24:34 02/18/2018 17:08:14 Right upper quadrant pain 715576075 R10.11 Gastroesop hageal reflux disease without esophagitis 012101243 K21.9 [id number] Jeff Blair PA-C [facility] [address] [place] [address] 07/26/2019 16:38:14 07/27/2019 15:12:07 Liver enzymes level above reference range 749910912 R74.8 Pruritic rash 20242830 L 28.2 [id number] Jeff Blair PA-C [facility] [address] [place] [address] 11/16/2019 15:27:58 11/16/2019 16:04:45 Pain in left knee 2098582635 08392 M25.563 [id number] Bonilla Matthews MD [facility] [address] [place] [address] 12/31/2020 09:42:27 12/31/2020 19:34:49 Cough 67171556 R05 [id number] Jeff Blair PA-C [facility] [address] [place] [address] 10/02/2021 14:04:54 10/07/2021 09:19:11 Temporomandibular xgdnv-wkrx-jbuahsuypp n syndrome 936377191 M26.629 Migraine 09213349 G43.90 9 [id number] Jeff Blair PA-C [facility] [address] [place] [address] 10/28/2022 16:37:24 10/28/2022 17:14:55 Pain of left knee joint 6929075174 99351 M25.562 Overweight 319177540 E66 .3 Migraine without aura 56 866665 G43.009 Migraine 66294756 G43.90 9 [id number] Jeff Blair PA-C [facility] [address] [place] [address] 11/20/2022 16:53:17 12/01/2022 08:33:03 Pain of left knee joint 6231053264 02536 M25.681 [id number] Jeff Blair PA-C [facility] [address] [place] [address] 06/09/2023 16:16:44 06/14/2023 10:06:45 Viral syndrome 872495318 B34.9 [id number] Jeff Blair PA-C [facility] [address] [place] [address] 06/13/2024 17:44:27 06/20/2024 14:39:56 Angina pectoris 125214671 I20.89 Dyspnea on exertion 6084 5006 R06.09 Overweight 887740864 E66 .3 Family his tory of Myocardial infarct in 1st degree male relative <55 years 265792020 Z82.49 Gastroesop hageal reflux disease without esophagitis 346019736 K21.9 Family his tory of cancer of the esophagus 416634874 Z80.0 Acute maxi llary sinusitis 03466649 J01.01 Health Concerns Section Related Observation LastModified by Organization Detai ls LastModified Time None Recorded Concern Status LastModified by Organization Details LastModified Time None Recorded Advance Directives Directive N: Payers Insurance Date Sequence Insurance Name Policy Number Policy Arias Covered Member ID Arias Member ID Guarantor Name 06/20/2024 1 [employer] [id number] Philippe Tiwari [id number] Philippe Tiwari Notes Date Note Type Note Provider Name and Address Organization Details Recorded Time 10/02/2021 text/html Patient presents with migraine headache for the last 3 days. Headache is worse than his baseline, which he gets intermittently over the past year. He was seen in the ED yesterday, given migraine cocktail which improved his symptoms. CT in the ED was normal...(see report). Woke this morning with recurring pain similar to prior to ED visit. Has taken Tylenol, which has not alleviated current symptoms. The pain has radiated to his right jaw and under the chin. He has previously taken sumatriptan for prior migraines which has improved his symptoms. 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 0...was transferred into 5 march of last year... Jeff Blair PA-C Attn: [address] [place], [address], [facility] 10/28/2022 17:09:38 11/20/2022 text/html left knee pain continues...staying down on floor has improved this Jeff Blair PA-C Attn: [address] [facility], [place], [address], [facility] 11/20/2022 17:26:23 06/13/2024 text/html sinus infection for a week and a half..corn is coming out..now in lungs...little cough..describes chest pain left side...dad had mi in 40s.. Jeff Blair PA-C Attn: [address] [place], [address], [place] [facility] 06/13/2024 18:08:45
--- OUTSIDE RECORDS SUMMARY | 2025-04-02 06:48 | XMS_ITS | Clinical Summary ---
Author Organization [facility] [address] [place] [address] Care Team Providers Care Stopperer Assembler Name Role Phone Geovany Blair Primary Care Provider [phone] Allergies Active Allergy Reactions Criticality Noted Date [...] 08/07/2019 Assessment & Plan (08/07/2019 3:26 PM FINANCIAL DATA ANALYST): Chronic, benign appearing lesions, appear to be [...] (08/07/2019): Added automatically from request for surgery [id number] Surgical History Surgery Date Site/Laterality Comments CHOLECYSTECTOMY 09/20/2017 - 09/19/2018 LIVER BIOPSY 09/20/2017 - 09/19/2018 KNEE SURGERY 04/13/2020 Left ACL LIPOMA RESECTION Medical History Medical History Date Comments Chronic diarrhea Improved Food intolerance GERD (gastroesophageal reflux disease) Allergic rhinitis Family History Medical History Relation Name Comments Heart disease Father Heart disease Father's Brother Diabetes Mother Diabetes Paternal Grandfather Heart disease Paternal Grandfather Breast cancer Paternal Grandmother Relation Name Status Comments Father Alive Father's Brother Mother Alive Paternal Grandfather Paternal Grandmother Social History Tobacco Use Types Packs/Day Years [...] on file Legal 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 Gender Identity Not on file Sexual Orientation Not on file Obstetrics History Last Filed Vital Signs Vital Sign Reading [...] 11/30/2022 9:24 AM CDT Plan of Treatment Health Maintenance Due Date Last Done Comments Depression Screening 1991 DTaP/Tdap/Td Vaccine (6 - Tdap) 2002 03/10/1996, 03/05/1993, 02/21/1992, Additional history exists Varicella Vaccines (1 of 2 - 13+ 2-dose series) 2004 Hepatitis B Screening 2009 Regular Well Visit/Exam 18-64 2009 Influenza Vaccine (#1) 2025 Hepatitis C Screening Completed 03/08/2018 HPV Vaccines Aged Out No longer eligi ble based on patient's age to complete this topic Pneumococcal vaccine <65 Aged Out No longer eligible based on patient's age to complete this topic Procedures Procedure Name Priority Date/Time Associated Diagnosis Comments HEPATITIS PANEL, ACUTE Timed 03/08/2018 10:24 AM CDT from Last 3 Months or Most Recently Relevant to Health Maintenance Results * Hepatitis panel, acute (03/08/2018 10:24 AM CDT) Hep A IgM Non-Reacti ve Non-Reacti ve [facility] Hep B core IgM Non-Reacti ve Non-Reacti ve [facility] Hep C Ab Non-Reacti ve Non-Reacti ve [facility] HepBsAg Non-Reacti ve Non-Reacti ve [facility] Blood specimen (specimen) 03/08/2018 10:24 AM CDT 03/08/2018 10:34 AM CDT Narrative [facility] - 03/08/2018 11:38 AM CDT Hamilton Westbrook MD LAB MICROBIOLOGY - GENERAL ORDERABLES Final Result [facility] [address] Department [place] [address] from Last 3 Months or Most Recently Relevant to Health Maintenance Insurance BLUE ACCESS CHOICE AL BLUE ACCESS CHOICE AL BLUE ACCESS CHOICE AL Advance Directives For more information, please contact: [phone] * Full Code (Latest Code Status on File) Date Activated Date Inactivated Comments 03/08/2018 10:16 AM 03/08/2018 1:00 PM Care Teams Stopperer Assembler Relationship Specialty Start Date End Date Geovany Blair PA [address] [place] [address] PCP - General Family Practice 05/01/17
[2025-04-02 06:54] VITALS: BP 145/90; PULSE 95; RESP 17; O2SAT 99
[2025-04-02 07:00] VITALS: BP 142/91; PULSE 82; RESP 18; O2SAT 100
[2025-04-02 07:05] LABS: Hematocrit 47.7 % (42.0-52.0); Hemoglobin 16.2 g/dL (14.0-18.0); Immature Granulocyte Percent A 0.3 % (0-0.5); Lymphocytes Absolute Auto 1.05 K/mm3 (0.9-3.2); Mean Corpuscular HGB Conc 34.0 g/dl (32-36); Mean Corpuscular Hemoglobin 28.1 pg (26-34); Mean Corpuscular Volume 82.7 fl (80-100); Nucleated Red Blood Cells Absolute Auto 0.000 K/mm3 (0.0-0.012); Nucleated Red Blood Cells Perc 0.0 % (0.0-0.2); Platelet Count Result 214 k/mm3 (150-375); Red Blood Count 5.77 M/mm3 (4.6-6.20); White Blood Count 6.3 K/mm3 (4.5-10.0)
[2025-04-02] MEDS: ONDANSETRON INJ 4 MG/2 ML VIAL IV PUSH (07:13)
[2025-04-02 07:22] LABS: Alanine Aminotransferase 81 U/L (6-50); Albumin Level 4.5 g/dL (3.5-5.1); Alkaline Phosphatase 78 U/L (38-126); Anion Gap 11 mmol/L (4-12); Aspartate Amino Transferase 58 U/L (17-59); Bilirubin,Total 0.6 mg/dL (0.2-1.3); Blood Urea Nitrogen 12 mg/dL (9-20); Calcium 9.5 mg/dL (8.4-10.2); Carbon Dioxide 29 mmol/L (22-30); Chloride 99 mmol/L (98-107); Estimated CRCL calculation 107 ml/min; Estimated Glomerular Filt Rate > 60; Glucose 105 mg/dL (65-110); Magnesium 2.0 mg/dL (1.6-2.3); Potassium 3.1 mmol/L (3.4-5.0); Sodium 139 mmol/L (137-145); Total Protein 8.2 g/dL (6.3-8.2)
--- NOTE | 2025-04-02 07:30 | ED_ITS ---
HPI - Abdominal Pain General Chief Complaint: Abdominal Pain Stated Complaint: possible kidney stone Time Seen by Provider: 04/02/25 06:59 History of Present Illness HPI narrative: For last 5 days, patient has a vague nausea, vomiting, diarrhea, however this morning he suddenly started having pain to his right flank that goes down to his groin, and pain with urination. Has never had a kidney stone before but thinks he may have a stone. No on else at home has similar symptoms. Related Data Home Medications ?Medication ?Instructions ?Recorded ?Confirmed ?Last Taken ?Type loratadine 10 mg tablet (Claritin) 10 mg PO DAILY 06/30/24 07/18/24 Unknown History omeprazole 20 mg capsule,delayed 20 mg PO DAILY 06/30/24 07/18/24 Unknown History release Allergies Allergy/AdvReac Type Severity Reaction Status Date / Time No Known Allergies Allergy Verified 04/02/25 06:56 Review of Systems 2 Review of Systems: All systems reviewed & are unremarkable except as noted in HPI and below PMFSH Surgical History Surgical History History of cholecystectomy History of repair of ACL Family History Family History Mother Family history non-contributory Social History Social History Smoking status: Never smoker Alcohol intake: never Substance use: never Living arrangements: with family Gender identity (if verbalized by the patient): Male Sexual Orientation (if Verbalized by the Patient): Straight or Heterosexual Spiritual care concerns: No Exam 2 Narrative: EXAMINATION OF ORGAN SYSTEMS/BODY AREAS: Constitutional: Vital signs per nursing GENERAL:[No acute distress, non-toxic appearing.] HEAD: Normal with no signs of head trauma. EYES: EOMI, conjunctiva normal ENT: Hearing grossly intact LUNGS: Nonlabored breathing. HEART: [Regular rate and rhythm] ABD: [Soft], no right lower quadrant tenderness EXT: Normal range of motion SKIN: [No rashes or lesions.] NEURO: [Alert and oriented x 3. No gross focal sensory or strength deficits.] PSYCH: Normal affect Course Vital Signs Vital signs: Vital Signs Temperature 97.6 F 04/02/25 06:46 Pulse Rate 93 07/14/25 06:46 Respiratory Rate 18 04/02/25 06:46 Blood Pressure 131/90 04/02/25 06:46 Pulse Oximetry 98 04/02/25 06:46 Oxygen Delivery Room Air 04/02/25 06:46 Temperature 97.6 F 04/02/25 06:46 Pulse Rate 83 04/02/25 08:00 Respiratory Rate 17 04/02/25 08:00 Blood Pressure 115/70 04/02/25 08:00 Pulse Oximetry 95 04/02/25 08:00 Oxygen Delivery Room Air 04/02/25 06:54 MDM - Abdominal Pain MDM Narrative Medical decision making narrative: ED COURSE AND MEDICAL DECISION MAKIN-year-old male presenting to the emergency department for acute flank pain, symptoms are concerning for likely renal colic. Urinalysis is ordered. Also consider gastroenteritis, appendicitis, does abdomen soft nontender without right lower quadrant tenderness. Zofran ordered. While patient was here, he urinated and passed a stone. Pain now resolved. CT scan of the abdomen/pelvis is ordered. Labs are remarkable for: Hematuria, potassium 3.[address] scan of the abdomen/pelvis is interpreted by radiology: No acute abnormality. On reevaluation, the patient extremely comfortable, no further symptoms. Patient is strongly advised to return to the emergency department for any increasing pain not improving with medications, persistent nausea vomiting, fevers or chills or for any other concerns. Discussed follow-up to urologist. Patient is comfortable with this plan and was discharged in fair condition. Lab Data 04/02/25 07:00 04/02/25 07:00 Labs: Lab Results 04/02/25 04/02/25 Range/Units 07:00 07:26 WBC 6.3 (4.5-10.0) K/mm3 RBC 5.77 (4.6-6.20) M/mm3 Hgb 16.2 (14.0-18.0) g/dL Hct 47.7 (42.0-52.0) % MCV 82.7 (80-100) fl MCH 28.1 (26-34) pg MCHC 34.0 (32-36) g/dl RDW 13.2 (11.5-14.5) % Plt Count 214 (150-375) k/mm3 MPV 8.6 (7.4-10.4) fl Immature Gran % (Auto) 0.3 (0-0.5) % Neut % (Auto) 68.2 (45.5-73.1) % Lymph % (Auto) 16.6 L (18.3-44.2) % [place] % (Auto) 12.2 H (2.6-8.5) % Eos % (Auto) 1.9 (0-4.4) % Baso % (Auto) 0.8 (0.2-1.2) % Lymph # (Auto) 1.05 (0.9-3.2) K/mm3 Hans[place] # (Auto) 0.8 H (0.1-0.6) K/mm3 Eos # (Auto) 0.1 (0-0.3) K/mm3 Baso # (Auto) 0.1 (0.0-0.1) K/mm3 Abs Immat Gran (auto) 0.02 (0.00-0.031) K/mm3 Absolute Neuts (auto) 4.3 (1.3-6.7) K/mm3 Absolute Nucleated RBC 0.000 (0.0-0.012) K/mm3 Nucleated RBC % 0.0 (0.0-0.2) % Sodium 139 (137-145) mmol/L Potassium 3.1 L (3.4-5.0) mmol/L Chloride 99 (98-107) mmol/L Carbon Dioxide 29 (22-30) mmol/L Anion Gap 11 (4-12) mmol/L BUN 12 (9-20) mg/dL Creatinine 0.97 (0.7-1.3) mg/dL Estim Creat Clear Calc 107 ml/min Estimated GFR > 60 (59 - ) Glucose 105 (65-110) mg/dL Calcium 9.5 (8.4-10.2) mg/dL Magnesium 2.0 (1.6-2.3) mg/dL Total Bilirubin 0.6 (0.2-1.3) mg/dL AST 58 (17-59) U/L ALT 81 H (6-50) U/L Alkaline Phosphatase 78 (38-126) U/L Total Protein 8.2 (6.3-8.2) g/dL Albumin 4.5 (3.5-5.1) g/dL Urine Color Yellow (Yellow) Urine Appearance Clear (Clear) Urine pH 6.0 (5.0-9.0) Ur Specific [place] 1.022 (1.001-1.035) Urine Protein 1+ H (Negative) mg/dL Urine Glucose (UA) Negative (Negative) mg/dL Urine Ketones Trace H (Negative) mg/dL Ur Blood (Man) 2+ H (Negative) Urine Nitrate Negative (Negative) Urine Bilirubin Negative (Negative) Urine Urobilinogen 0.2 (<2.0) mg/dL Leukocyte Esterase Rfl Negative (Negative) AMILCAR/UL Urine RBC 51-100 H (0-2) /hpf Urine WBC 0-5 (0-3) /hpf Ur Squamous Epith Cells None seen (Few) /hpf Urine Bacteria None seen /hpf Urine Casts 3-5 Imaging Data Radiologist's impression: ITS Impressions Abdomen/Pelvis CT 04/02/25 08:04 Impression: No acute abnormality seen. Diffuse hepatic steatosis. Discharge Plan Discharge Clinical Impression: Acute flank pain Patient Disposition: Home Condition: Stable Instructions: Flank Pain (ED) Additional Instructions: Your CT today looks normal, it is very likely that you had a kidney stone that passed. Make sure you are keeping hydrated. Follow-up with a urologist, if your symptoms return or worsen, you can always return to the emergency room. Patient Language: Hungarian Prescriptions: New ondansetron 4 mg tablet,disintegrating 4 mg PO Q8H PRN (Reason: nausea and vomiting) Qty: 10 0RF No Action omeprazole 20 mg Capsule,Delayed Release(Dr/Ec) 20 mg PO DAILY loratadine [Claritin] 10 mg Tablet 10 mg PO DAILY amoxicillin-pot clavulanate 875-125 mg tablet 1 tablet PO Q12H Qty: 20 0RF Follow-up/Referrals: Farhad Gonzalez MD [Physician] - 2 Days Johnnie,JIM Bailey [Primary Care Provider] -
[2025-04-02 07:52] LABS: Add Urine Microscopic? YES; Appearance Urine Clear (Clear); Glucose Urine UA Negative (Negative); Leukocyte Esterase Ur Negative LEU/UL (Negative); Nitrate Urine Negative (Negative); Specific Grav Ur 1.022 (1.001-1.035)
[2025-04-02 08:00] VITALS: BP 115/70; PULSE 83; RESP 17; O2SAT 95
--- OUTSIDE RECORDS SUMMARY | 2025-04-02 08:07 | XMS_ITS | Referral Summary ---
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 Gender Identity Not on file Sexual Orientation [...] Hep A IgM Non-Reacti ve Non-Reacti ve [facility] Hep B core IgM Non-Reacti ve Non-Reacti ve [facility] Hep C Ab Non-Reacti ve Non-Reacti ve [facility] HepBsAg Non-Reacti ve Non-Reacti ve [facility] Blood specimen (specimen) 03/08/2018 10:24 AM CDT 03/08/2018 10:34 AM CDT Narrative [facility] - 03/08/2018 11:38 AM CDT Hamilton Westbrook MD LAB MICROBIOLOGY - GENERAL ORDERABLES Final Result [facility] [address] Department [place] [address] from Last 3 Months or Most Recently Relevant to Health Maintenance Insurance [employer] [place] [employer] [place] [employer] ACCESS CHOICE [place] Advance Directives For more information, please contact: [phone] * Full Code (Latest Code Status on File) Date Activated Date Inactivated Comments 03/08/2018 10:16 AM 03/08/2018 1:00 PM Care Teams Fur Polisher Relationship Specialty Start Date End Date Geovany Blair PA [address] [place] [address] PCP - General Family Practice 05/01/17
--- OUTSIDE RECORDS SUMMARY | 2025-04-02 08:07 | XMS_ITS | Clinical Summary ---
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 Gender Identity Not on file [...] Hep A IgM Non-Reacti ve Non-Reacti ve [facility] Hep B core IgM Non-Reacti ve Non-Reacti ve [facility] Hep C Ab Non-Reacti ve Non-Reacti ve [facility] HepBsAg Non-Reacti ve Non-Reacti ve [facility] Blood specimen (specimen) 03/08/2018 10:24 AM CDT 03/08/2018 10:34 AM CDT Narrative [facility] - 03/08/2018 11:38 AM CDT Hamilton Westbrook MD LAB MICROBIOLOGY - GENERAL ORDERABLES Final Result [facility] [address] Department [place] [address] from Last 3 Months or Most Recently Relevant to Health Maintenance Insurance [place] Advance Directives For more information, please contact: [phone] * Full Code (Latest Code Status on File) Date Activated Date Inactivated Comments 03/08/2018 10:16 AM 03/08/2018 1:00 PM Care Teams Manager Enterprise Relationship Specialty Start Date End Date Geovany Blair PA [address] [place] [address] PCP - General Family Practice 05/01/17
--- OUTSIDE RECORDS SUMMARY | 2025-04-02 08:07 | XMS_ITS | Clinical Summary ---
Author Organization [facility] Address [address] [place] [address] Care Team Providers Care Bank Representative Name Role Phone Geovany Blair Primary Care Provider [phone] Ellis Varela MD Unavailable [phone] Source Comments [facility],non-owned Affiliates and Associated Physician Practices is amultiple site organization consisting of ambulatory clinics and hospital sitesin [place], [place], [place] and [place]. This disclosure is being madepursuant to the Care Everywhere program and may not contain all information available regarding this patient. Last updated 18.[facility] Allergies No known active allergies Medications * [...] this topic Medical Devices Implanted Type Area Diversified Crops Farmer Device Identifier Shelf Expiration Date Model / Serial / Lot Btn Fx 11mm Tghtrp Rnd Cncv Atch Implanted:Qty: 1 on 02/22/2020 by Ellis Varela MD at [facility] Left: Knee [employer] 10/20/2024 AR-1588TB-3 / / [id number] Sys Fx Acl Implanted:Qty: 1 on 02/22/2020 by Ellis Varela MD at [facility] Left: Knee [employer] 10/20/2021 AR-1593 / / [id number] Pack Srg Graftlink Atgrft Implanted:Qty: 1 on 02/22/2020 by Ellis Varela MD at [facility] Left: Knee [employer] 10/20/2024 AR-1588AU-[id number] P / / [id number] Dev Fx Tghtrp Fibertag Acl Rt Disp Implanted:Qty: 1 on 02/22/2020 by Ellis Varela MD at [facility] Left: Knee [employer] 08/19/2024 AR-[id number] / / [id number] Dev Fx Tghtrp Fibertag Acl Abs Disp Implanted:Qty: 1 on 02/22/2020 by Ellis Varela MD at [facility] Left: Knee [employer] 06/19/2024 AR-[id number] / / [id number] Insurance [facility] Care Teams Bank Representative Relationship Specialty Start Date End Date Geovany Blair PA [address] [place] [id number] PCP - General Physician Embroiderer Hand 01/29/20 [place] [id number] [address] Orthopedic Surgery 07/31/20
[2025-04-02] MEDS: POTASSIUM CHLORIDE 20 MEQ ER TABLET 40 MEQ PO (08:29)
== END 2025-04-02 08:31 | disposition home or self-care (01) ==
PROVIDERS: Emergency Medicine; Emergency Provider Emergency Medicine; PCP Physician Assistant
DX: R10.31 Right lower quadrant pain (principal); Z90.49 Acquired absence of other specified parts of digestive tract; K76.0 Fatty (change of) liver, not elsewhere classified
CPT/HCPCS: 36415; 74176; 80053; 81001; 83735; 85025; 96374; 99284; A9270; J2405